=== PATIENT | female | born 1960 | race Caucasian/White ===

== ENCOUNTER 2017-03-28 11:31 | Inpatient (IN) | payer OTHER ==
[2017-03-28] MEDS ORDERED: ALBUTEROL SO4 2.5/IPRATROPIUM 0.5 INH SOL 3 ML VIAL.NEB. NEB ONE ×2 (12:01→12:24)
[2017-03-28] MEDS ORDERED: predniSONE 20 MG TABLET (UD) PO ONE (12:02)
[2017-03-28] MEDS ORDERED: predniSONE 20 MG TABLET (UD) ONE (12:12)
[2017-03-28] MEDS ORDERED: predniSONE 10 MG TABLET (UD) ONE (12:13)
[2017-03-28] MEDS ORDERED: AZITHROMYCIN 500 MG TABLET PO ONE (12:15)
[2017-03-28 12:24] LABS: BASOPHIL 0.2 % (0-2.0); EOSINOPHIL 0.1 % (0-4.5); MCH 30.7 pg (25.7-33.7); MCHC 33.2 g/dl (32.0-36.0); MEAN CELL VOLUME 92.6 fl (80-96); MEAN PLT VOLUME 7.7 fl (7.5-11.1); NEUTROPHILS 80.9 % (42.8-82.8); PLATELET COUNT 225 K/MM3 (134-434); WHITE BLOOD COUNT 11.9 K/mm3 (4.0-10.0)
[2017-03-28] MEDS ORDERED: AZITHROMYCIN 250 MG TABLET ONE (12:24)
--- NOTE | 2017-03-28 12:24 | PDOC ---
History of Present Illness - General Chief Complaint: Chest Pain Stated Complaint: DIFFICULTY BREATHING Time Seen by Provider: 03/28/17 11:41 History Source: Patient Exam Limitations: No Limitations - History of Present Illness Initial Comments: 03/28/17 12:18 56F with history of anxiety and depression here today complaining of chest pain for the past two days. It is located in the lateral left portion of her chest, below her left breast. The pain is made worse with inspiration and movement. She endorses associated shortness of breath because she can't take a full breath in. The pain started yesterday after lifting a bag from [employer]. She denies nausea, vomiting and diaphoresis. She endorses having a cold two days ago with a cough and runny nose, but denies fevers and chills. She is an active smoker, smoking a half pack per day. She has no history of blood clots and is not taking control or estrogen supplements. Past History - Past Medical History Allergies/Adverse Reactions: Allergies Allergy/AdvReac Type Severity Reaction Status Date / Time bacitracin Allergy Intermediate Swelling Verified 04/02/14 16:51 bacitracin zinc Allergy Intermediate Swelling Verified 04/02/14 16:51 [From Neosporin ([id number])] neomycin sulfate Allergy Intermediate Swelling Verified 04/02/14 16:51 [From Neosporin ([id number])] polymyxin B Allergy Intermediate Swelling Verified 04/02/14 16:51 [From Neosporin ([id number])] sumatriptan [From Imitrex] Allergy Unknown Verified 04/02/14 16:51 sumatriptan succinate Allergy Unknown Verified 04/02/14 16:51 [From Imitrex] bees Allergy Uncoded 04/02/14 16:51 Home Medications: Ambulatory Orders Venlafaxine HCl [Effexor -] 150 mg PO BID 03/28/17 HTN: Yes Psychiatric Problems: Yes (depression, anxiety) Suicide Attempt (Hx): No Thyroid Disease: Yes - Surgical History Lung Surgery: Yes (UTERINE ABLATION & BENIGN TUMOR REMOVED) - Family Disease History Family Disease History: Heart Disease: Father, Respiratory: Father - Psycho/Social/Smoking Cessation Hx Anxiety: Yes Suicidal Ideation: No Smoking Status: Yes Smoking History: Current every day smoker Have you smoked in the past 12 months: Yes Number of Cigarettes Smoked Daily: 15 Information on smoking cessation initiated: No 'Breaking Loose' booklet given: 04/02/14 Hx Alcohol Use: No Drug/Substance Use Hx: Yes Substance Use Type: Prescribed Hx Substance Use Treatment: No Review of Systems - Review of Systems Comments:: 03/28/17 12:36 GENERAL/CONSTITUTIONAL: No fever or chills. No weakness. HEAD, EYES, EARS, NOSE AND THROAT: No change in vision. No sore throat. Positive for runny nose. CARDIOVASCULAR: Positive for chest pain and shortness of breath RESPIRATORY: Positive for cough. Negative for wheezing and hemoptysis. GASTROINTESTINAL: No nausea, vomiting, diarrhea or constipation. GENITOURINARY: No dysuria, frequency, or change in urination. MUSCULOSKELETAL: No joint or muscle swelling or pain. Positive for back pain. SKIN: No rash NEUROLOGIC: No headache, vertigo, loss of consciousness, or change in strength/ sensation. ENDOCRINE: No increased thirst. No abnormal weight change HEMATOLOGIC/LYMPHATIC: No anemia, easy bleeding, or history of blood clots. ALLERGIC/IMMUNOLOGIC: No hives or skin allergy. *Physical Exam - Vital Signs Last Vital Signs Temp Pulse Resp BP Pulse Ox 98.4 F 93 H 20 109/88 96 03/28/17 11:41 03/28/17 11:41 03/28/17 11:41 03/28/17 11:41 03/28/17 11:41 Heart Score/ECG Review - History History: Slightly suspicious - Electrocardiogram EKG: Non specific repolarization disturbance - Age Age: 45-65 - Risk Factors Risk Factors Heart Score: Yes Hx Hypertension, Yes Smoking History Based on the list above the patient has:: 1-2 risk factors - Troponin Troponin: </= normal limit - Score Heart Score - Total: 3 - ECG Intrepretation Comment:: 03/28/17 12:38 ECG shows normal sinus rhythm. Rate = 94. T wave inversions in II, III, aVF, V3- V6. No st elevations or depression. QTc 402 ED Treatment Course - LABORATORY CBC & Chemistry Diagram: 03/28/17 12:05 03/28/17 12:05 - RADIOLOGY Radiology Studies Ordered: Category Date Time Status CHEST X-RAY PORTABLE* [RAD] Stat Radiology 03/28/17 12:00 Ordered - Medications Given in the ED: ED Medications Discontinued Medications Generic Name Dose Route Start Last Admin Trade Name Freq PRN Reason Stop Dose Admin Prednisone 50 mg 03/28/17 12:02 03/28/17 12:17 Deltasone - PO 03/28/17 12:03 50 mg ONCE ONE Administration Medical Decision Making - Medical Decision Making 03/28/17 12:39 Patient is a 56F with history of anxiety, depression and htn here today complaining of atypical chest pain. HR to high 90s. Satting 93% on room air. Vital signs otherwise normal and stable. Can't PERC out due to age. Differential diagnosis includes, but is not limited to: COPD exacerbation, ACS, PE, arrhythmia. Will do labs, ecg and cxr to evaluate. 03/28/17 12:42 Laboratory Tests 03/28/17 03/28/17 12:03 12:05 WBC 11.9 H D Hgb 13.1 Hct 39.5 Plt Count 225 D-Dimer 634 H CBC shows small white count, otherwise normal. D-dimer positive. Will do CTA. 03/28/17 13:18 CXR shows no acute cardiopulmonary process. Laboratory Tests 03/28/17 12:05 Troponin I < 0.02 Trop negative. Pending CTA. 03/28/17 15:27 CTA positive for lower lobe PE. Given lovenox. 03/28/17 17:34 Admitted to tele inpatient. *DC/Admit/Observation/Transfer Diagnosis at time of Disposition: Pulmonary embolism - Discharge Dispostion Condition at time of disposition: Stable Admit: Yes - Referrals Referrals: Dany Alvarado MD [Primary Care Provider] -
[2017-03-28 12:26] LABS: INR 1.28 (0.82-1.09); PROTHROMBIN TIME (PATIENT) 14.2 SEC (9.98-11.88)
[2017-03-28 12:49] LABS: ALBUMIN 3.3 g/dl (3.4-5.0); ANION GAP 11 (8-16); BILIRUBIN,TOTAL 0.6 mg/dL (0.2-1.0); CALCIUM 8.6 mg/dL (8.5-10.1); CO2 24 mmol/L (21-32); CREATININE 0.6 mg/dL (0.55-1.02); GLUCOSE,RANDOM 107 mg/dL (74-106); MAGNESIUM 2.1 mg/dL (1.8-2.4); SGOT/AST 9 U/L (15-37); SGPT/ALT 10 U/L (12-78); TOT PROT 6.5 g/dl (6.4-8.2)
[2017-03-28 12:52] LABS: ALK PHOS 91 U/L (45-117); CPK 50 IU/L (26-192); TROPONIN I < 0.02 ng/ml (0.00-0.05)
--- NOTE | 2017-03-28 13:33 | PDOC ---
Attending Attestation - Resident Resident Name: JorgeaugustinaFrancisco Javier - ED Attending Attestation I have performed the following: I have examined & evaluated the patient, The case was reviewed & discussed with the resident, I agree w/resident's findings & plan, Exceptions are as noted - HPI HPI: 03/28/17 13:33 56 F with h/o anxiety presents to ER with chest pain and SOB x 2 days. Pt reports pain that is worse with inspiration associated with cough that is productive of white sputum. Denies F/C. Denies leg swelling. Denies exertional component to pain. No h/o DVT/PE. Pt is longtime smoker, denies h/o COPD. No FH cardiac disease. - Physicial Exam PE: 03/28/17 13:34 "GENERAL: Awake, alert, and fully oriented, in no acute distress HEAD: No signs of trauma EYES: PERRLA, EOMI, sclera anicteric, conjunctiva clear ENT: Auricles normal inspection, hearing grossly normal, nares patent, oropharynx clear without exudates. Moist mucosa NECK: Nontender, no stepoffs, Normal ROM, supple, no lymphadenopathy, JVD, or masses LUNGS: mild expiratory wheezes, no stridor and no crackles HEART: Regular rate and rhythm, normal S1 and S2, no murmurs, rubs or gallops ABDOMEN: Soft, nontender, normoactive bowel sounds. No guarding, no rebound. No masses EXTREMITIES: Normal range of motion, no edema. No clubbing or cyanosis. No cords, erythema, or tenderness NEUROLOGICAL: Cranial nerves II through XII intact. 5/5 strength and sensation in all extremities, Normal speech, normal gait SKIN: Warm, Dry, normal turgor, no rashes or lesions noted. " - Medical Decision Making 03/28/17 13:37 56 F with SOB and chest pain. Likely COPD exacerbation given wheezing on exam. Will r/o PE with dimer/CT. Pain is not consistent with ACS, and pt has few cardiac risk factors. However, EKG with inferolateral T wave inversions not seen on prior EKG 3 years ago. Will r/o ACS with serial trops. HEART score 3. - Labs, trop, dimer - CXR - CTPE if indicated - Nebs, steroids, azithro Discharge Disposition - Diagnosis Pulmonary embolism - Discharge Dispostion Last Admission D/C Date: 05/14/11 Admit: Yes
[2017-03-28] MEDS ORDERED: ENOXAPARIN NA (PORCINE) 60 MG/0.6 ML DISP.SYRIN SQ ONE (15:38)
[2017-03-28] MEDS: ENOXAPARIN NA (PORCINE) 60 MG/0.6 ML DISP.SYRIN SQ SCH (15:41)
[2017-03-28] MEDS ORDERED: ENOXAPARIN NA (PORCINE) 30 MG/0.3 ML DISP.SYRIN SQ ONE (17:27)
--- NOTE | 2017-03-28 17:56 | HP ---
CHIEF COMPLAINT: "I felt like i have bubbles in my left chest" PCP:Christiano HISTORY OF PRESENT ILLNESS: 56F PMH depression anxiety chronic back pain HTN COPD migraines presents to the ED with a 2 day history of left sided lateral chest pain with associated shortness of breath. It is located in the lateral left portion of her chest, lateral to her left breast. She states the pain is worse with inspiration and movement. She states it is difficult to take a deep breath. She states she initially had a funny feeling like bubbles in her left chest and felt like she had to cough to get them out. The pain started yesterday after lifting a bag after shopping. She denies nausea, vomiting fevers chills and diaphoresis. She has back apin at baseline an is awaiting surgery for a spinal stimulator. Patient endorses long periods of time where she is immobile due to pain was able to car for her mom who recently passed from [employer]. She denies any recent leg swelling redness or pain. She has no history of blood clots and is not taking control or estrogen supplements.She endorses having a cold two days ago with a cough and runny nose, but denies fevers and chills. She is an active smoker, but states she quit 2 days ago. In ED she was intially thought to have COPD exacerbation and was treated as such. D dimer was positive which prompted a CTA of the chest and patient was found to have a LLL acute PE. Given lovenox in ED. ER course was notable for: (1)Azithromycin (2)nebulizers (3)CTA chest Recent Travel:Denies PAST MEDICAL HISTORY:As above PAST SURGICAL HISTORY:Discectomy right knee arthroscopy. another spinal surgery patient does not remember what Social History: Smokin pack year history quit 2 days ago Alcohol:Denies Drugs: denies Family History: Allergies bacitracin Allergy (Intermediate, Verified 04/02/14 16:51) Swelling bacitracin zinc [From Neosporin ([id number])] Allergy (Intermediate, Verified 04/02/14 16:51) Swelling neomycin sulfate [From Neosporin ([id number])] Allergy (Intermediate, Verified 04/02/14 16:51) Swelling polymyxin B [From Neosporin ([id number])] Allergy (Intermediate, Verified 16:51) Swelling sumatriptan [From Imitrex] Allergy (Unknown, Verified 04/02/14 16:51) sumatriptan succinate [From Imitrex] Allergy (Unknown, Verified 04/02/14 16:51) bees Allergy (Uncoded 04/02/14 16:51) HOME MEDICATIONS: Home Medications Medication Instructions Recorded Venlafaxine HCl [Effexor -] 150 mg PO BID 03/28/17 REVIEW OF SYSTEMS CONSTITUTIONAL: Absent: fever, chills, diaphoresis, generalized weakness, malaise, loss of appetite, weight change HEENT: Absent: rhinorrhea, nasal congestion, throat pain, throat swelling, difficulty swallowing, mouth swelling, ear pain, eye pain, visual changes CARDIOVASCULAR: Absent: , syncope, palpitations, irregular heart rate, lightheadedness, peripheral edema Present: chest pain RESPIRATORY: Absent: , dyspnea with exertion, orthopnea, wheezing, stridor, hemoptysis Present:cough, shortness of breath GASTROINTESTINAL: Absent: abdominal pain, abdominal distension, nausea, vomiting, diarrhea, constipation, melena, hematochezia GENITOURINARY: Absent: dysuria, frequency, urgency, hesitancy, hematuria, flank pain, genital pain MUSCULOSKELETAL: Absent: myalgia, arthralgia, joint swelling, neck pain Present: back pain neck pain knee pain right hip pain. Patient states she thinks she has a hole in her right hip SKIN: Absent: rash, itching, pallor HEMATOLOGIC/IMMUNOLOGIC: Absent: easy bleeding, easy bruising, lymphadenopathy, frequent infections ENDOCRINE: Absent: unexplained weight gain, unexplained weight loss, heat intolerance, cold intolerance NEUROLOGIC: Absent: headache, focal weakness or paresthesias, dizziness, unsteady gait, seizure, mental status changes, bladder or bowel incontinence PSYCHIATRIC: Absent: suicidal or homicidal ideation, hallucinations Present: anxiety, depression PHYSICAL EXAMINATION GENERAL: Awake, alert, and fully oriented, in no acute distress. HEAD: Normal with no signs of trauma. EYES: Pupils equal, round and reactive to light, extraocular movements intact No lid lag. EARS, NOSE, THROAT: Moist mucous membranes. NECK: Normal range of motion, supple without JVD LUNGS: Breath sounds equal, clear to auscultation bilaterally. No wheezes, and no crackles. No accessory muscle use. HEART: Regular rate and rhythm, normal S1 and S2 without murmur, rub or gallop. ABDOMEN: Soft, nontender, not distended, normoactive bowel sounds, no guarding No CVA tenderness. UPPER EXTREMITIES: warm, well-perfused. No peripheral edema. LOWER EXTREMITIES: 2+ pulses, warm, well-perfused. No calf tenderness. no erythema no swelling no tenderness along all upper and lower extremities. No peripheral edema. NEUROLOGICAL: Cranial nerves II-XII intact. Normal speech. PSYCHIATRIC: Cooperative. Good eye contact. anxious EKG: NSR @ 993 flipped T waves in lateral leads QtC 402 ASSESSMENT/PLAN: 56F with chest pain and shortness of breath found to have acute PE in LLL. Acute LLL Pulmonary embolism: Full therapeutic dose of lovenox pulmonology consult O2 PRN bronchodilators PRN Spoke to patient already about the need for anticoagulation and the different choices. Will go into further details prior to discharge. Can likely discharge on NOAC COPD: Pulm consult not in exacerbation bronchodilators PRN O2 PRN given azithromycin and prednisone in ED Chronic back pain: on muscle relaxers as outpt will continue PRN for outpatient follow up for spinal stimulator HTN: continue norvasc BP controlled Anxiety/depression: continue effexor patient states she is on xanax 2mg 4 times a day will need to verify medications GERD: Protonix PO FEN: No IVF no electrolyte issues low sodium diet PPx: Full anticoagulation dose of lovenox Protonix PT consult Medications to be verified when pharmacy opens Case discussed with attending Dr. Jett Visit type - Emergency Visit Emergency Visit: Yes ED Registration Date: 03/28/17 Care time: The patient presented to the Emergency Department on the above date and was hospitalized for further evaluation of their emergent condition. - New Patient This patient is new to me today: Yes Date on this admission: 03/28/17 - Critical Care Critical Care patient: No
--- NOTE | 2017-03-28 18:22 | PN ---
Teaching Attending Note Name of Resident: Bakari Paredes ATTENDING PHYSICIAN STATEMENT I saw and evaluated the patient. I reviewed the resident's note and discussed the case with the resident. I agree with the resident's findings and plan as documented. SUBJECTIVE: Patient feels very upset due to having Pulmonary Embolism, was found her crying. OBJECTIVE: Vital Signs Temperature 98.4 F 03/28/17 11:41 Pulse Rate 86 03/28/17 15:11 Respiratory Rate 20 03/28/17 15:11 Blood Pressure 110/68 03/28/17 15:11 O2 Sat by Pulse Oximetry (%) 96 03/28/17 15:11 GENERAL: Awake, alert, and fully oriented, in no acute distress. HEAD: Normal with no signs of trauma. EYES: Pupils equal, round and reactive to light, extraocular movements intact No lid lag. EARS, NOSE, THROAT: Moist mucous membranes. NECK: Normal range of motion, supple without JVD LUNGS: Breath sounds equal, clear to auscultation bilaterally but decreased . No wheezes, and no crackles. No accessory muscle use. HEART: Regular rate and rhythm, normal S1 and S2 without murmur, rub or gallop. ABDOMEN: Soft, nontender, not distended, normoactive bowel sounds, no guarding No CVA tenderness. Upper and lower extremities. No peripheral edema. pulses are positive NEUROLOGICAL: Cranial nerves II-XII intact. Normal speech. PSYCHIATRIC: Cooperative. Good eye contact. anxious CBCD WBC 11.9 K/mm3 (4.0-10.0) H D 03/28/17 12:05 RBC 4.27 M/mm3 (3.60-5.2) 03/28/17 12:05 Hgb 13.1 GM/dL (10.7-15.3) 03/28/17 12:05 Hct 39.5 % (32.4-45.2) 03/28/17 12:05 MCV 92.6 fl (80-96) 03/28/17 12:05 MCHC 33.2 g/dl (32.0-36.0) 03/28/17 12:05 RDW 13.0 % (11.6-15.6) 03/28/17 12:05 Plt Count 225 K/MM3 (134-434) 03/28/17 12:05 MPV 7.7 fl (7.5-11.1) 03/28/17 12:05 CMP Sodium 142 mmol/L (136-145) 03/28/17 12:05 Potassium 3.8 mmol/L (3.5-5.1) 03/28/17 12:05 Chloride 107 mmol/L (98-107) 03/28/17 12:05 Carbon Dioxide 24 mmol/L (21-32) 03/28/17 12:05 Anion Gap 11 (8-16) 03/28/17 12:05 BUN 9 mg/dL (7-18) D 03/28/17 12:05 Creatinine 0.6 mg/dL (0.55-1.02) 03/28/17 12:05 Creat Clearance w eGFR > 60 (>60) 03/28/17 12:05 Random Glucose 107 mg/dL (74-106) H D 03/28/17 12:05 Calcium 8.6 mg/dL (8.5-10.1) 03/28/17 12:05 Total Bilirubin 0.6 mg/dL (0.2-1.0) D 03/28/17 12:05 AST 9 U/L (15-37) L D 03/28/17 12:05 ALT 10 U/L (12-78) L D 03/28/17 12:05 Alkaline Phosphatase 91 U/L (45-117) 03/28/17 12:05 Total Protein 6.5 g/dl (6.4-8.2) 03/28/17 12:05 Albumin 3.3 g/dl (3.4-5.0) L 03/28/17 12:05 CARDIAC ENZYMES Creatine Kinase 50 IU/L (26-192) 03/28/17 12:05 Troponin I < 0.02 ng/ml (0.00-0.05) 03/28/17 12:05 Current Medications Generic Name Dose Route Start Last Admin Trade Name Freq PRN Reason Stop Dose Admin Amlodipine Besylate 5 mg 03/29/17 10:00 Norvasc - PO DAILY AMARILIS Enoxaparin Sodium 60 mg 03/28/17 15:30 03/28/17 15:41 Lovenox - SQ 60 mg ONCE AMARILIS Administration Enoxaparin Sodium 60 mg 03/29/17 10:00 Lovenox - SQ Q12H AMARILIS Pantoprazole Sodium 40 mg 03/29/17 10:00 Protonix - PO DAILY AMARILIS Trazodone HCl 150 mg 03/28/17 22:00 Desyrel - PO HS AMARILIS Venlafaxine HCl 100 mg/ 150 mg 03/28/17 22:00 Venlafaxine HCl 50 mg PO BID AMARILIS CTA: LLL and branches positive for PE ASSESSMENT AND PLAN: 56F with chest pain and shortness of breath found to have acute PE in LLL. # Acute PE on Chest Ct: Lovenox 60mg sq bid , Pulmonary consult # Hx of HTN continue Norvasc # Hx of depression continue Trazodone, Venlafaxine # hx of smoking , patient stated that quit smoking 4 days ago, and will not smoke again. DVT px: Lovenox
[2017-03-28] MEDS ORDERED: PT OWN MED DRAWER 7, Y5N ONE (21:24)
[2017-03-28] MEDS ORDERED: VENLAFAXINE HCL 50 MG TABLET PO SCH (22:00)
[2017-03-28] MEDS ORDERED: TOPIRAMATE 25 MG TABLET (FP) PO SCH (22:00)
[2017-03-28] MEDS ORDERED: VENLAFAXINE HCL 100 MG TABLET PO SCH ×2 (22:00)
[2017-03-28] MEDS ORDERED: ALPRAZolam 0.25 MG TABLET PO SCH (22:00)
[2017-03-28] MEDS ORDERED: traZODone HCL 150 MG TABLET PO SCH (22:00)
[2017-03-28] MEDS ORDERED: VENLAFAXINE HCL PO SCH (22:00)
[2017-03-28] MEDS: ALPRAZolam 0.25 MG TABLET PO SCH (22:30)
[2017-03-28] MEDS: TOPIRAMATE 25 MG TABLET (FP) PO SCH (22:51)
[2017-03-28] MEDS: VENLAFAXINE HCL PO SCH (22:52)
[2017-03-28] MEDS: traZODone HCL 150 MG TABLET PO SCH (22:52)
[2017-03-28 23:20] VITALS: BMI 24.9
[2017-03-28] MEDS ORDERED: FLU VACCINE QUAD 60 MCG/0.5 ML (MDV 17-18) IM ONE (23:20)
[2017-03-28] MEDS ORDERED: FENTANYL PATCH WASTE MC PRN (23:30)
[2017-03-29] MEDS: fentaNYL 12mcg/hr PATCH.TD72 TD SCH ×2 (00:28→09:19)
[2017-03-29] MEDS: VENLAFAXINE HCL PO SCH ×2 (09:10→21:22)
[2017-03-29] MEDS: ENOXAPARIN NA (PORCINE) 60 MG/0.6 ML DISP.SYRIN SQ SCH ×3 (09:11→21:23)
[2017-03-29] MEDS: PANTOPRAZOLE 40 MG TABLET (FP) PO SCH (09:12)
[2017-03-29] MEDS: amLODIPine BESYLATE 5 MG TABLET (FP) PO SCH (09:12)
[2017-03-29] MEDS: TOPIRAMATE 25 MG TABLET (FP) PO SCH ×2 (09:13→21:23)
[2017-03-29] MEDS: ALPRAZolam 0.25 MG TABLET PO SCH ×2 (09:13→21:21)
[2017-03-29] MEDS ORDERED: PANTOPRAZOLE 40 MG TABLET (FP) PO SCH (10:00)
[2017-03-29] MEDS ORDERED: amLODIPine BESYLATE 5 MG TABLET (FP) PO SCH (10:00)
--- NOTE | 2017-03-29 13:09 | PN ---
Progress Note (short form) - Note Progress Note: PULMONARY CONSULTATION DICTATED 03/29/17 IMP ACUTE PULMONARY EMBOLISM LIKELY PROVOKED CHRONIC BACK PAIN DEPRESSION HTN PLAN ANTICOAGULATION DUPLEX LOWER EXT ECHO W/U HYPERCOAGULABLE STATE INCENTIVE SPIROMETER ANALGESICS YEARLY LOW DOSE CHEST CT FOR LUNG CANCER SCREENING Problem List - Problems (1) Pulmonary embolism Code(s): I26.99 - OTHER PULMONARY EMBOLISM WITHOUT ACUTE COR PULMONALE (2) Back pain Code(s): M54.9 - DORSALGIA, UNSPECIFIED (3) Depressed Code(s): F32.9 - MAJOR DEPRESSIVE DISORDER, SINGLE EPISODE, UNSPECIFIED (4) HTN (hypertension) Code(s): I10 - ESSENTIAL (PRIMARY) HYPERTENSION (5) Tobacco abuse Code(s): Z72.0 - TOBACCO USE (6) Tobacco abuse counseling
--- NOTE | 2017-03-29 13:40 | PN ---
Physical Exam: SUBJECTIVE: Patient seen and examined. Says she feels much better today and is breathing better. Her pain level yesterday was 12/10 and today she says its a 5/ 10. She denies fever, nausea/vomiting, edema, urinary symptoms, dizziness and headache. OBJECTIVE: Vital Signs Period Temp Pulse Resp BP Sys/[place]oud Pulse Ox Last 24 Hr 97.9 F-98.6 F 72-97 18-18 96-127/52-74 94-98 GENERAL: The patient is awake, alert, and fully oriented, in no acute distress. HEAD: Normal with no signs of trauma. EYES: PERRL, extraocular movements intact, sclera anicteric, conjunctiva clear. No ptosis. ENT: oropharynx clear without exudates, moist mucous membranes. NECK: supple. LUNGS: Breath sounds equal, clear to auscultation bilaterally, no wheezes, no crackles, no accessory muscle use. HEART: Regular rate and rhythm, S1, S2 without murmur, rub or gallop. ABDOMEN: Soft, nontender, nondistended, normoactive bowel sounds, no guarding, no rebound, no hepatosplenomegaly, no masses. EXTREMITIES: 2+ pulses, warm, well-perfused, no edema. NEUROLOGICAL: Cranial nerves II through XII grossly intact. Normal speech, gait not observed. PSYCH: Normal mood, normal affect. Active Medications Generic Name Dose Route Start Last Admin Trade Name Freq PRN Reason Stop Dose Admin Alprazolam 0.25 mg 03/28/17 22:00 03/29/17 09:13 Xanax - PO 0.25 mg BID AMARILIS Administration Amlodipine Besylate 5 mg 03/29/17 10:00 03/29/17 09:12 Norvasc - PO Not Given DAILY AMARILIS Enoxaparin Sodium 60 mg 03/28/17 15:30 03/28/17 15:41 Lovenox - SQ 60 mg ONCE AMARILIS Administration Enoxaparin Sodium 60 mg 03/29/17 10:00 03/29/17 09:11 Lovenox - SQ 60 mg Q12H AMARILIS Administration Fentanyl 1 patch 03/28/17 23:30 03/29/17 09:19 Duragesic 12mcg Patch - TD 04/04/17 23:29 1 patch Q72H AMARILIS Administration Miscellaneous 1 each 03/28/17 23:30 Duragesic Patch Waste MC PRN PRN PAIN Pantoprazole Sodium 40 mg 03/29/17 10:00 03/29/17 09:12 Protonix - PO 40 mg DAILY AMARILIS Administration Topiramate 50 mg 03/28/17 22:00 03/29/17 09:13 Topamax - PO 50 mg BID AMARILIS Administration Trazodone HCl 150 mg 03/28/17 22:00 03/28/17 22:52 Desyrel - PO 150 mg HS AMARILIS Administration Venlafaxine HCl 100 mg/ 150 mg 03/28/17 22:00 03/29/17 09:10 Venlafaxine HCl 50 mg PO 150 mg BID AMARILIS Administration ASSESSMENT/PLAN: Patient is a 56 y/p with a PMx of anxiety, depression, chronic back pain, hypothyroidism, HTN, and COPD presented to the ED with left sided chest pain with SOB and was found to have a LLL PE. #Acute Pulmonary Embolus: -likely provoked. On her bed the past few days because of back pain. -Continue Lovenox 60 BID - Will need to follow-up heme outpatient for hypercoaguable state work up due to 2 family members with history of PE. -Follow up Pulmonary outpatient -Incentive spirometry -Possible NOAC on discharge #Hypertension -Continue Norvasc 5 -will monitor #Depression -Continue Trazodone -Continue Venlafaxine #Anxiety -Continue Xanax .25 BID #Hypothyroidism -Continue Levothyroxine 150mcg #FEN -Not on any fluids -Electrolytes WNL -Sodium restricted diet #PPX: -Lovonex 60BID -GI prophylaxis Dispo: Plan is for possible discharge tomorrow. Visit type - Emergency Visit Emergency Visit: Yes ED Registration Date: 03/28/17 Care time: The patient presented to the Emergency Department on the above date and was hospitalized for further evaluation of their emergent condition. - New Patient This patient is new to me today: Yes Date on this admission: 03/29/17 - Critical Care Critical Care patient: No
--- NOTE | 2017-03-29 13:58 | EKG ---
Test Reason : Blood Pressure : / mmHG Vent. Rate : 094 BPM Atrial Rate : 094 BPM P-R Int : 134 ms QRS Dur : 076 ms QT Int : 322 ms P-R-T Axes : 043 027 253 degrees QTc Int : 402 ms NORMAL SINUS RHYTHM T WAVE ABNORMALITY, CONSIDER INFERIOR ISCHEMIA T WAVE ABNORMALITY, CONSIDER ANTEROLATERAL ISCHEMIA ABNORMAL ECG WHEN COMPARED WITH ECG OF 08-MAR-2014 10:55, T WAVE INVERSION NOW EVIDENT IN INFERIOR LEADS T WAVE VARIATION Confirmed by SAEID TAI MD ([id number]) on 03/29/2017 1:58:17 PM Referred By: Confirmed By:SAEID TAI MD
--- NOTE | 2017-03-29 15:42 | PN ---
Teaching Attending Note Name of Resident: Alberto Deutsch ATTENDING PHYSICIAN STATEMENT I saw and evaluated the patient. I reviewed the resident's note and discussed the case with the resident. I agree with the resident's findings and plan as documented. SUBJECTIVE: Comfortable today ,feels better less pain today when takes deep breaths. OBJECTIVE: Vital Signs Temperature 98 F 03/29/17 10:00 Pulse Rate 72 03/29/17 10:21 Respiratory Rate 18 03/29/17 10:00 Blood Pressure 96/60 03/29/17 10:00 O2 Sat by Pulse Oximetry (%) 96 03/29/17 10:21 CBCD WBC 11.9 K/mm3 (4.0-10.0) H D 03/28/17 12:05 RBC 4.27 M/mm3 (3.60-5.2) 03/28/17 12:05 Hgb 13.1 GM/dL (10.7-15.3) 03/28/17 12:05 Hct 39.5 % (32.4-45.2) 03/28/17 12:05 MCV 92.6 fl (80-96) 03/28/17 12:05 MCHC 33.2 g/dl (32.0-36.0) 03/28/17 12:05 RDW 13.0 % (11.6-15.6) 03/28/17 12:05 Plt Count 225 K/MM3 (134-434) 03/28/17 12:05 MPV 7.7 fl (7.5-11.1) 03/28/17 12:05 CMP Sodium 142 mmol/L (136-145) 03/28/17 12:05 Potassium 3.8 mmol/L (3.5-5.1) 03/28/17 12:05 Chloride 107 mmol/L (98-107) 03/28/17 12:05 Carbon Dioxide 24 mmol/L (21-32) 03/28/17 12:05 Anion Gap 11 (8-16) 03/28/17 12:05 BUN 9 mg/dL (7-18) D 03/28/17 12:05 Creatinine 0.6 mg/dL (0.55-1.02) 03/28/17 12:05 Creat Clearance w eGFR > 60 (>60) 03/28/17 12:05 Random Glucose 107 mg/dL (74-106) H D 03/28/17 12:05 Calcium 8.6 mg/dL (8.5-10.1) 03/28/17 12:05 Total Bilirubin 0.6 mg/dL (0.2-1.0) D 03/28/17 12:05 AST 9 U/L (15-37) L D 03/28/17 12:05 ALT 10 U/L (12-78) L D 03/28/17 12:05 Alkaline Phosphatase 91 U/L (45-117) 03/28/17 12:05 Total Protein 6.5 g/dl (6.4-8.2) 03/28/17 12:05 Albumin 3.3 g/dl (3.4-5.0) L 03/28/17 12:05 CARDIAC ENZYMES Creatine Kinase 50 IU/L (26-192) 03/28/17 12:05 Troponin I < 0.02 ng/ml (0.00-0.05) 03/28/17 12:05 Current Medications Generic Name Dose Route Start Last Admin Trade Name Freq PRN Reason Stop Dose Admin Alprazolam 0.25 mg 03/28/17 22:00 03/29/17 09:13 Xanax - PO 0.25 mg BID [facility] Administration Amlodipine Besylate 5 mg 03/29/17 10:00 03/29/17 09:12 Norvasc - PO Not Given DAILY [facility] Enoxaparin Sodium 60 mg 03/28/17 15:30 03/29/17 15:05 Lovenox - SQ Not Given ONCE [facility] Enoxaparin Sodium 60 mg 03/29/17 10:00 03/29/17 09:11 Lovenox - SQ 60 mg Q12H [facility] Administration Fentanyl 1 patch 03/28/17 23:30 03/29/17 09:19 Duragesic 12mcg Patch - TD 04/04/17 23:29 1 patch Q72H [facility] Administration Levothyroxine Sodium 150 mcg 03/30/17 07:00 Synthroid - PO DAILY@0700 [facility] Miscellaneous 1 each 03/28/17 23:30 Duragesic Patch Waste [facility] PRN PRN PAIN Pantoprazole Sodium 40 mg 03/29/17 10:00 03/29/17 09:12 Protonix - PO 40 mg DAILY [facility] Administration Topiramate 50 mg 03/28/17 22:00 03/29/17 09:13 Topamax - PO 50 mg BID [facility] Administration Trazodone HCl 150 mg 03/28/17 22:00 03/28/17 22:52 Desyrel - PO 150 mg HS [facility] Administration Venlafaxine HCl 100 mg/ 150 mg 03/28/17 22:00 03/29/17 09:10 Venlafaxine HCl 50 mg PO 150 mg BID [facility] Administration Home Medications Medication Instructions Recorded Alprazolam [Xanax] 2 mg PO QID PRN 03/28/17 Fentanyl 12.5 mcg TD 03/28/17 Tapentadol HCl [Nucynta ER] 50 mg PO BID 03/28/17 Venlafaxine HCl [Effexor -] 150 mg PO BID 03/28/17 CTA: LLL and branches positive for PE ASSESSMENT AND PLAN: 56F with chest pain and shortness of breath found to have acute PE in LLL. # Acute PE provoked due to having chronic back pain , and lying in bed most of the time ,most likely, also states that has a mother and brother with PE . On Chest Ct: Lovenox 60mg sq bid , Pulmonary consult . Ordered incentive spirometer. # Hx of HTN continue Norvasc # Hx of depression continue Trazodone, Venlafaxine # Hx of Hypothroidism continue levothyroxine # hx of smoking , patient stated that quit smoking 4 days ago, and will not smoke again. # Hx of chronic Back pain, uses fentanyl patch at home echo, Duplex are ordered hematology f/u as an outpatient to r/o Protein C and S deficiency. DVT px: Lovenox
[2017-03-29] MEDS ORDERED: TOPIRAMATE 25 MG TABLET (FP) PO ONE (17:40)
--- NOTE | 2017-03-29 20:10 | CONS ---
DATE OF CONSULTATION: 03/29/2017 PULMONARY CONSULTATION REFERRING PHYSICIAN: Paige Jett M.D. HISTORY OF PRESENT ILLNESS: The patient is a 56-year-old white female with past medical history of COPD, hypertension, anxiety, depression. History of chronic lower back pain, admitted to [facility] with complaint of 2-day history of left-sided lateral chest pain associated with shortness of breath. Patient states that for the past relatively sedentary recently because of her chronic back pain, as well she had been depressed by the loss of her mother. Apparently 2 days prior to admission she developed the sudden onset of acute left-sided lateral chest pain with associated shortness of breath. Patient describes it as pleuritic in nature, increasing with inspiration, to the point that she is not able to take a deep breath. Her symptoms continued, at which time she presented to the emergency room. She denied any fevers, chills, did have occasional cough which was nonproductive. Denied any nausea, vomiting, diaphoresis. There is no history of recent travel. There is no history of DVT or PE in the past. But she does have a family history of brother having DVT. States that she came to the emergency room as above. In the ER, she had a CTA which revealed left lower lobe pulmonary embolism. She was admitted to the floor and started on anticoagulation. The day before she was relatively sedentary and has chronic back pain and is awaiting surgery for a spinal stimulator. She denies any previous history of DVT or PE in the past. There is no history of occupational exposure to chemicals or fumes. There is no recent travel. She has a longstanding history of tobacco use, approximately 1-1/2 to 2 packs per day since age 18. She quit about 4 days ago. PAST MEDICAL HISTORY: Again includes hypertension, chronic back pain, depression, anxiety. SOCIAL HISTORY: History of tobacco use, quit 4 days ago. No occupational exposures. One daughter alive and well. FAMILY HISTORY: Significant for 6 siblings, one brother has history of blood clots. CURRENT MEDICATIONS: Include Duragesic, Lovenox, Topamax, Desyrel, , Xanax, Norvasc, Duragesic, Protonix. REVIEW OF SYSTEMS: Positive for chest pain. No shortness of breath, no fever, no chills. Positive for cough, which has improved. No nausea, no vomiting, no diaphoresis, no lower extremity edema, no abdominal pain. PHYSICAL EXAMINATION: General: The patient is a well-developed, well-nourished female, awake, alert, in no acute distress. Vital signs: She is currently afebrile. Blood pressure 96/60, respiratory rate 18, and O2 saturation is 96% on 2 L. HEENT: Head is normocephalic, atraumatic. Neck: Supple. Heart: Regular. S1, S2. Chest: Clear. Abdomen: Soft. Bowel sounds positive. Extremities: No cyanosis, edema. LABORATORY: WBC is 11.9, hemoglobin 13.1, hematocrit 39.5, platelet count of 225,000. INR is 1.28, D-dimer is 634. Chemistry: BUN 9, creatinine 0.6. Chest CT reveals left lower lobe pulmonary embolism and bibasilar consolidation but less likely, left pleural effusion likely secondary to atelectasis. IMPRESSION: 1. Pulmonary embolism, likely provoked in view of relatively sedentary lifestyle. 2. Chronic back pain. 3. Depression. 4. Smoker. PLAN: Continue anticoagulation. No objection to . Obtain echocardiogram, duplex lower extremities. Also work up hypocoagulable state. Incentive spirometry. Analgesics. And also yearly low dose chest CT if lung cancer screening reveals long history of tobacco use. MARTIN FINK M.D. SHIVANI/[id number]
[2017-03-29] MEDS ORDERED: PT OWN MED DRAWER 7, Y5N ONE (21:17)
[2017-03-29] MEDS: traZODone HCL 150 MG TABLET PO SCH (21:23)
[2017-03-30] MEDS ORDERED: FLU VACCINE QUAD 60 MCG/0.5 ML (MDV 17-18) IM ONE (06:30)
[2017-03-30] MEDS ORDERED: LEVOTHYROXINE NA 75 MCG TABLET (FP) PO SCH (07:00)
[2017-03-30] MEDS ORDERED: PT OWN MED DRAWER 7, Y5N ONE (08:57)
[2017-03-30] MEDS: VENLAFAXINE HCL PO SCH (09:17)
[2017-03-30] MEDS: amLODIPine BESYLATE 5 MG TABLET (FP) PO SCH (09:17)
[2017-03-30] MEDS: ENOXAPARIN NA (PORCINE) 60 MG/0.6 ML DISP.SYRIN SQ SCH (09:17)
[2017-03-30] MEDS: PANTOPRAZOLE 40 MG TABLET (FP) PO SCH (09:17)
[2017-03-30] MEDS: TOPIRAMATE 25 MG TABLET (FP) PO SCH (09:18)
[2017-03-30] MEDS: ALPRAZolam 0.25 MG TABLET PO SCH (09:18)
--- NOTE | 2017-03-30 11:46 | PN ---
Progress Note, Physician History of Present Illness: pulmonary alert,-resp distress,less cp. - Current Medication List Current Medications: Active Medications Alprazolam (Xanax -) 0.25 mg PO BID [facility] Last Admin: 03/30/17 09:18 Dose: 0.25 mg Amlodipine Besylate (Norvasc -) 5 mg PO DAILY [facility] Last Admin: 03/30/17 09:17 Dose: 5 mg Enoxaparin Sodium (Lovenox -) 60 mg SQ Q12H [facility] Last Admin: 03/30/17 09:17 Dose: 60 mg Fentanyl (Duragesic 12mcg Patch -) 1 patch TD Q72H [facility] Stop: 04/04/17 23:29 Last Admin: 03/29/17 09:19 Dose: 1 patch Levothyroxine Sodium (Synthroid -) 150 mcg PO DAILY@0700 [facility] Last Admin: 03/30/17 06:33 Dose: 150 mcg Miscellaneous (Duragesic Patch Waste) 1 each [facility] PRN PRN PRN Reason: PAIN Last Admin: 03/29/17 09:20 Dose: 1 each Pantoprazole Sodium (Protonix -) 40 mg PO DAILY [facility] Last Admin: 03/30/17 09:17 Dose: 40 mg Topiramate (Topamax -) 50 mg PO BID [facility] Last Admin: 03/30/17 09:18 Dose: 50 mg Trazodone HCl (Desyrel -) 150 mg PO HS [facility] Last Admin: 03/29/17 21:23 Dose: 150 mg Venlafaxine HCl 100 mg/ (Venlafaxine HCl 50 mg) 150 mg PO BID [facility] Last Admin: 03/30/17 09:17 Dose: 150 mg - Objective Vital Signs: Vital Signs Temperature 98.8 F 03/30/17 09:25 Pulse Rate 79 03/30/17 09:25 Respiratory Rate 18 03/30/17 09:25 Blood Pressure 112/76 03/30/17 09:25 O2 Sat by Pulse Oximetry (%) 95 03/29/17 21:00 Constitutional: Yes: Well Nourished, Anxious Eyes: Yes: WNL HENT: Yes: WNL Neck: Yes: WNL Cardiovascular: Yes: Regular Rate and Rhythm, S1, S2 Respiratory: Yes: CTA Bilaterally Gastrointestinal: Yes: Normal Bowel Sounds, Soft Extremities: Yes: WNL Edema: No Labs: INR, PTT INR 1.28 (0.82-1.09) H 03/28/17 12:03 - ....Imaging Ultrasound: Other (duplex -dvt) Problem List - Problems (1) Pulmonary embolism Code(s): I26.99 - OTHER PULMONARY EMBOLISM WITHOUT ACUTE COR PULMONALE (2) Back pain Code(s): M54.9 - DORSALGIA, UNSPECIFIED (3) Depressed Code(s): F32.9 - MAJOR DEPRESSIVE DISORDER, SINGLE EPISODE, UNSPECIFIED (4) HTN (hypertension) Code(s): I10 - ESSENTIAL (PRIMARY) HYPERTENSION (5) Tobacco abuse Code(s): Z72.0 - TOBACCO USE (6) Tobacco abuse counseling Assessment/Plan IMP ACUTE PULMONARY EMBOLISM LIKELY PROVOKED CHRONIC BACK PAIN DEPRESSION HTN PLAN ANTICOAGULATION W/U HYPERCOAGULABLE STATE INCENTIVE SPIROMETER ANALGESICS YEARLY LOW DOSE CHEST CT FOR LUNG CANCER SCREENING Problem List - Problems (1) Pulmonary embolism Code(s): I26.99 - OTHER PULMONARY EMBOLISM WITHOUT ACUTE COR PULMONALE (2) Back pain Code(s): M54.9 - DORSALGIA, UNSPECIFIED (3) Depressed Code(s): F32.9 - MAJOR DEPRESSIVE DISORDER, SINGLE EPISODE, UNSPECIFIED (4) HTN (hypertension) Code(s): I10 - ESSENTIAL (PRIMARY) HYPERTENSION (5) Tobacco abuse Code(s): Z72.0 - TOBACCO USE (6) Tobacco abuse counseling
[2017-03-30 14:14] VITALS: BP 109/68; PULSE 82; TEMP 98.9
--- NOTE | 2017-03-30 17:27 | DS ---
Physical Exam: SUBJECTIVE: Patient seen and examined. Says she feels much better today. She says the pain improved but still has soreness on her chest. No acute events overnight. OBJECTIVE: Vital Signs Period Temp Pulse Resp BP Sys/Stroud Pulse Ox Last 24 Hr 97.3 F-99 F 72-85 18-18 92-122/53-78 94-95 PHYSICAL EXAM GENERAL: The patient is awake, alert, and fully oriented, in no acute distress. HEAD: Normal with no signs of trauma. EYES: PERRL, extraocular movements intact, sclera anicteric, conjunctiva clear. No ptosis. ENT: oropharynx clear without exudates, moist mucous membranes. NECK: supple. LUNGS: Breath sounds equal, clear to auscultation bilaterally, no wheezes, no crackles, no accessory muscle use. HEART: Regular rate and rhythm, S1, S2 without murmur, rub or gallop. ABDOMEN: Soft, nontender, nondistended, normoactive bowel sounds, no guarding, no rebound, no hepatosplenomegaly, no masses. EXTREMITIES: 2+ pulses, warm, well-perfused, no edema. NEUROLOGICAL: Cranial nerves II through XII grossly intact. Normal speech, gait not observed. PSYCH: Normal mood, normal affect. LABS HOSPITAL COURSE: Date of Admission:03/28/17 Patient is a 56 y/p with a PMx of anxiety, depression, chronic back pain, hypothyroidism, HTN, and COPD presented to the ED with left sided chest pain with SOB and was found to have a LLL PE on Chest CTA- likely provoked. She was treated with Lovenox 60mg BID and also was followed up closely with Pulmonary ( Dr. Musa). Her anxiety, hypertension, anxiety and depression home medications were continued during her hospital course. Patient will need to follow up her primary care physician within 1 week and combiner (Dr. Musa) within 2 weeks. Patient will also need to follow Hematology(Dr. James) in 2 weeks for hypercoaguable state work-up because of family history of PE. Patient was discharged on Lovenox 60mg BID and will follow PCP for further management. Her PCP was contacted is aware of the patients situation and agrees to our plan. Patient was given instructions and educated on the use of Anti-coagulants. Date of Discharge: 03/30/17 Minutes to complete discharge: 40 Discharge Summary Reason For Visit: PULMONARY EMBOLISM Condition: Stable - Instructions Diet, Activity, Other Instructions: you were treated for a left lower lobe pulmonary embolism which is a blood clot in your lung take all medications as prescribed it is important to take the blood thinning medications so your blood clot does not worsen Dr. alvarado is aware of your condition and is expecting to see you in the office a pre-authorization for eliquis was already sent to your insurance company if you have worsening of your symptoms call your doctor or go to the nearest ememrgecy room if you start bleeding or having blood in your stools go to the nearest emergency room you need to be extra careful while on blood thinning medications as we discussed Referrals: Micheal Musa MD [Staff Physician] - 2 Weeks Dany Alvarado MD [Staff Physician] - 1 Week Quinton James MD [Staff Physician] - 2 Weeks Disposition: HOME - Home Medications Comprehensive Discharge Medication List: Ambulatory Orders Alprazolam [Xanax] 2 mg PO QID PRN 03/28/17 Fentanyl 12.5 mcg TD 03/28/17 Tapentadol HCl [Nucynta ER] 50 mg PO BID 03/28/17 Venlafaxine HCl [Effexor -] 150 mg PO BID 03/28/17 Enoxaparin [Lovenox -] 60 mg SQ Q12H #60 syr 03/30/17 Levothyroxine [Synthroid -] 150 mcg PO DAILY 03/30/17 This patient is new to me today: No Emergency Visit: Yes ED Registration Date: 03/28/17 Care time: The patient presented to the Emergency Department on the above date and was hospitalized for further evaluation of their emergent condition. Critical Care patient: No - Discharge Referral Referred to [facility] Med P.C.: No
--- NOTE | 2017-03-30 18:02 | PN ---
Teaching Attending Note Name of Resident: Alberto Deutsch ATTENDING PHYSICIAN STATEMENT I saw and evaluated the patient. I reviewed the resident's note and discussed the case with the resident. I agree with the resident's findings and plan as documented. SUBJECTIVE: Patient is feeling better today. Denies any shortness of breath, no nausea , no chest pain. OBJECTIVE: Vital Signs Temperature 98.9 F 03/30/17 14:00 Pulse Rate 82 03/30/17 14:00 Respiratory Rate 18 03/30/17 14:00 Blood Pressure 109/68 03/30/17 14:00 O2 Sat by Pulse Oximetry (%) 94 L 03/30/17 09:00 CBCD WBC 11.9 K/mm3 (4.0-10.0) H D 03/28/17 12:05 RBC 4.27 M/mm3 (3.60-5.2) 03/28/17 12:05 Hgb 13.1 GM/dL (10.7-15.3) 03/28/17 12:05 Hct 39.5 % (32.4-45.2) 03/28/17 12:05 MCV 92.6 fl (80-96) 03/28/17 12:05 MCHC 33.2 g/dl (32.0-36.0) 03/28/17 12:05 RDW 13.0 % (11.6-15.6) 03/28/17 12:05 Plt Count 225 K/MM3 (134-434) 03/28/17 12:05 MPV 7.7 fl (7.5-11.1) 03/28/17 12:05 CMP Sodium 142 mmol/L (136-145) 03/28/17 12:05 Potassium 3.8 mmol/L (3.5-5.1) 03/28/17 12:05 Chloride 107 mmol/L (98-107) 03/28/17 12:05 Carbon Dioxide 24 mmol/L (21-32) 03/28/17 12:05 Anion Gap 11 (8-16) 03/28/17 12:05 BUN 9 mg/dL (7-18) D 03/28/17 12:05 Creatinine 0.6 mg/dL (0.55-1.02) 03/28/17 12:05 Creat Clearance w eGFR > 60 (>60) 03/28/17 12:05 Random Glucose 107 mg/dL (74-106) H D 03/28/17 12:05 Calcium 8.6 mg/dL (8.5-10.1) 03/28/17 12:05 Total Bilirubin 0.6 mg/dL (0.2-1.0) D 03/28/17 12:05 AST 9 U/L (15-37) L D 03/28/17 12:05 ALT 10 U/L (12-78) L D 03/28/17 12:05 Alkaline Phosphatase 91 U/L (45-117) 03/28/17 12:05 Total Protein 6.5 g/dl (6.4-8.2) 03/28/17 12:05 Albumin 3.3 g/dl (3.4-5.0) L 03/28/17 12:05 CARDIAC ENZYMES Creatine Kinase 50 IU/L (26-192) 03/28/17 12:05 Troponin I < 0.02 ng/ml (0.00-0.05) 03/28/17 12:05 Home Medications Medication Instructions Recorded Alprazolam [Xanax] 2 mg PO QID PRN 03/28/17 Fentanyl 12.5 mcg TD 03/28/17 Tapentadol HCl [Nucynta ER] 50 mg PO BID 03/28/17 Venlafaxine HCl [Effexor -] 150 mg PO BID 03/28/17 Enoxaparin [Lovenox -] 60 mg SQ Q12H #60 syr 03/30/17 Levothyroxine [Synthroid -] 150 mcg PO DAILY 03/30/17 Chest: CTA BL rest of PE per resident's note CTA: LLL and branches positive for PE ASSESSMENT AND PLAN: Patient is a 56F with chest pain and shortness of breath found to have acute PE in LLL. # Acute PE provoked due to having chronic back pain , and lying in bed most of the time ,most likely, also states that has a mother and brother with PE . Patient is placed on Lovenox 60mg sq bid ,will continue with Lovenox for now, until sees her PMD and will be arranged for further care of PE. Patient will follow with Pulmonary . continue incentive spirometer. # Hx of HTN continue Norvasc # Hx of depression continue Trazodone, Venlafaxine # Hx of Hypothroidism continue levothyroxine # hx of smoking , patient stated that quit smoking 4 days ago, and will not smoke again. # Hx of chronic Back pain, uses fentanyl patch at home echo, Duplex reviewed hematology f/u as an outpatient to r/o Protein C and S deficiency. discharge time 45minutes.
== END 2017-03-30 15:36 | disposition home health service (06) | DRG 176 ==
LOC: JER 11:31 → JERBED 15:52 → J4S 19:04
PROVIDERS: ADMIT Internal Medicine; ATTEND Internal Medicine
DX: I26.99 Other pulmonary embolism without acute cor pulmonale (principal); F41.8 Other specified anxiety disorders; R07.89 Other chest pain; I10 Essential (primary) hypertension; J44.9 Chronic obstructive pulmonary disease, unspecified; G43.809 Other migraine, not intractable, without status migrainosus; Z87.891 Personal history of nicotine dependence; K21.9 Gastro-esophageal reflux disease without esophagitis; M54.9 Dorsalgia, unspecified; E03.9 Hypothyroidism, unspecified; Z79.01 Long term (current) use of anticoagulants
CPT/HCPCS: 36415; 71010-TC; 71275-TC; 80053; 83735; 84484; 85025; 85379; 85610; 90688; 93005; 93010; 93306-TC; 93970-TC; 94010; 97116-GP; 97161-GP; 99285-25; G0008

== ENCOUNTER 2018-05-13 08:06 | Day surgery (SDC) | payer OTHER ==
[2018-05-13 08:43] VITALS: BMI 24.8
[2018-05-13] MEDS ORDERED: TETRACAINE/BENZOCAINE/BUTAMBEN 20 GM SPR TP ONE (09:31)
[2018-05-13 10:32] VITALS: TEMP 97.9
[2018-05-13 11:35] VITALS: BP 128/75; PULSE 73
--- NOTE | 2018-05-16 15:44 | PATH ---
Surgical Pathology Report Patient Name: MAGGIE WERNER [facility]. Rec. #: [id number] /Age/Gender: 1960 (Age: 57) / F Account: [id number] Location: U-ENDOSCOPY Taken: 05/13/2018 Received: 05/13/2018 Reported: 05/16/2018 Physicians: Arturo Vanegas M.D. Specimen(s) Received A: BX 2ND PORTION DUODENUM AND DUODENAL BULB B: BX ANTRUM C: BX GE JUNCTION D: BX MID ESOPHAGUS E: BX ILEUM F: BX CECUM G: BX DISTAL TRANSVERSE COLON POLYP Clinical History Family history of stomach cancer, possible spinal lesion, rule out stomach and colon cancer Final Diagnosis A. DUODENUM, SECOND PORTION AND DUODENAL BULB, BIOPSY: DUODENAL MUCOSA WITH MILD ACUTE AND CHRONIC DUODENITIS. B. STOMACH, ANTRUM, BIOPSY: GASTRIC ANTRAL MUCOSA WITH MILD CHRONIC GASTRITIS. IMMUNOHISTOCHEMICAL STAIN FOR H. PYLORI IS NEGATIVE. C. EG JUNCTION, BIOPSY: SQUAMOCOLUMNAR MUCOSA WITH MILD ACUTE AND CHRONIC INFLAMMATION AND CHANGES OF MODERATE REFLUX ESOPHAGITIS. NO INTESTINAL METAPLASIA OR DYSPLASIA IDENTIFIED. D. MID ESOPHAGUS, BIOPSY: ESOPHAGEAL SQUAMOUS MUCOSA WITH MILD BASAL CELL HYPERPLASIA AND VASCULAR CONGESTION CONSISTENT WITH MILD REFLUX TYPE ESOPHAGITIS. E. ILEUM, BIOPSY: ILEAL MUCOSA WITHOUT SIGNIFICANT PATHOLOGIC FINDINGS. F. CECUM, BIOPSY: COLONIC MUCOSA WITH FOCAL ACTIVE COLITIS. SEE COMMENT. G. DISTAL TRANSVERSE COLON, POLYP, BIOPSY: POLYPOID COLONIC MUCOSA WITH SMALL LYMPHOID AGGREGATE AND FOCAL SUPERFICIAL HYPERPLASTIC FEATURES. Comment: Findings are non-specific. Although acute self-limited colitis is a consideration, among other conditions, the possibility of early inflammatory bowel disease cannot be completely excluded. Suggest clinical/radiologic correlation. Electronically Signed Caro Moser M.D. Gross Description A. Received in formalin, labeled "second portion duodenum and bulb" are 3 anne, irregular portions of soft tissue measuring 0.5 cm. in greatest dimension. The specimens are submitted in toto in one cassette. B. Received in formalin, labeled "antrum" are multiple anne, irregular portions of soft tissue measuring 0.4 cm. in greatest dimension. The specimens are submitted in toto in one cassette. C. Received in formalin, labeled "EG junction" are multiple anne, irregular portions of soft tissue measuring 0.3 cm. in greatest dimension. The specimens are submitted in toto in one cassette. D. Received in formalin, labeled "mid esophagus rule out eosinophilic esophagitis" are 2 anne, irregular portions of soft tissue measuring 0.4 cm. in greatest dimension. The specimens are submitted in toto in one cassette. E. Received in formalin, labeled "ileum rule out microscopic colitis" are 2 anne, irregular portion of soft tissue measuring 0.3 cm. in greatest dimension. The specimens are submitted in toto in one cassette. F. Received in formalin, labeled "cecum rule out microscopic colitis" are multiple anne, irregular portions of soft tissue measuring 0.3 cm. in greatest dimension. The specimens are submitted in toto in one cassette. G. Received in formalin, labeled "distal transverse colon polyp" are multiple anne, irregular portions of soft tissue measuring 1.0 cm. in greatest dimension. The specimens are submitted in toto in one cassette. FARHAN05/13/2018 shanel05/13/2018
== END 2018-05-13 11:35 | disposition home or self-care (01) ==
LOC: JASU-ENDO 08:06
PROVIDERS: ATTEND Internal Medicine Gastroenterology
PROC: 0DB48ZX Excision of Esophagogastric Junction, Via Natural or Artificial Opening Endoscopic, Diagnostic (ICD-10-PCS; 2018-05-13)
PROC: 0DB68ZX Excision of Stomach, Via Natural or Artificial Opening Endoscopic, Diagnostic (ICD-10-PCS; 2018-05-13)
PROC: 0DB38ZX Excision of Lower Esophagus, Via Natural or Artificial Opening Endoscopic, Diagnostic (ICD-10-PCS; 2018-05-13)
PROC: 0DBL8ZX Excision of Transverse Colon, Via Natural or Artificial Opening Endoscopic, Diagnostic (ICD-10-PCS; principal; 2018-05-13 09:00)
DX: Z12.11 Encounter for screening for malignant neoplasm of colon (principal); D12.3 Benign neoplasm of transverse colon; K29.80 Duodenitis without bleeding; K44.9 Diaphragmatic hernia without obstruction or gangrene; K29.50 Unspecified chronic gastritis without bleeding; K21.0 Gastro-esophageal reflux disease with esophagitis; K52.9 Noninfective gastroenteritis and colitis, unspecified; K57.30 Diverticulosis of large intestine without perforation or abscess without bleeding; Z80.0 Family history of malignant neoplasm of digestive organs
CPT/HCPCS: 87045; 87046; 87177; 87209; 88305-TC; 88342-TC

== ENCOUNTER 2020-05-29 13:31 | Emergency (ER) | payer OTHER | END 2020-05-29 15:29 | disposition home or self-care (01) | LOC: JVIRT 13:31 | DX: Z03.818 Encounter for observation for suspected exposure to other biological agents ruled out (principal) | CPT/HCPCS: C9803; Q3014-GT; U0003 ==

== ENCOUNTER 2021-08-28 09:58 | Inpatient (IN) | payer BC ==
[2021-08-28] MEDS ORDERED: ONDANSETRON *ODT* 4 MG TABLET SL PRN (13:13)
[2021-08-28] MEDS ORDERED: MAGNESIUM CITRATE 300 ML BOTTLE PO PRN (13:13)
[2021-08-28] MEDS ORDERED: MAGNESIUM HYDROX 2400MG/30ML ORAL SUSPENSION 30 ML CUP PO PRN (13:13)
[2021-08-28] MEDS ORDERED: NICOTINE 10 MG CARTRIDGE (INHALER) IH PRN (13:13)
[2021-08-28] MEDS ORDERED: LOPERAMIDE HCL 2 MG CAPSULE PO PRN (13:13)
[2021-08-28] MEDS ORDERED: ACETAMINOPHEN 325 MG TABLET (FP) PO PRN ×2 (13:13)
[2021-08-28] MEDS ORDERED: BISMUTH SUBSALICYLATE 524 MG/30 ML PO PRN (13:13)
[2021-08-28] MEDS ORDERED: MENTHOL/PHENOL 1 EACH UD MM PRN (13:13)
[2021-08-28] MEDS ORDERED: BUPRENORPHINE HCL 150 MCG, BUPRENORPHINE HCL 75 MCG BC ONE (13:45)
[2021-08-28] MEDS ORDERED: cloNIDine HCL 0.1 MG TABLET PO ONE (13:45)
[2021-08-28 14:20] VITALS: BMI 33.6
[2021-08-28] MEDS ORDERED: ALPRAZolam 2 MG TABLET PO PRN (15:01)
[2021-08-28] MEDS ORDERED: BUPRENORPHINE HCL 150 MCG FILM BC ONE (15:51)
[2021-08-28] MEDS ORDERED: BUPRENORPHINE HCL 75 MCG FILM BC ONE (15:52)
[2021-08-28] MEDS: hydrOXYzine PAMOATE 25 MG CAPSULE (FP) PO SCH ×2 (15:53→17:30)
[2021-08-28] MEDS: METHOCARBAMOL 500 MG TABLET PO PRN (15:54)
[2021-08-28] MEDS: IBUPROFEN 400 MG TABLET (FP) PO PRN (17:31)
[2021-08-28] MEDS: diazePAM 5 MG TABLET PO PRN (18:08)
[2021-08-29] MEDS: VENLAFAXINE HCL 75 MG TABLET PO SCH ×3 (00:27→21:25)
[2021-08-29] MEDS: hydrOXYzine PAMOATE 25 MG CAPSULE (FP) PO SCH ×6 (00:28→21:25)
[2021-08-29] MEDS: MELATONIN 5 MG TABLETS PO SCH ×2 (00:28→21:42)
[2021-08-29] MEDS: THIAMINE HCL 100 MG TABLET (FP) PO SCH ×2 (00:28→21:42)
[2021-08-29] MEDS: diazePAM 5 MG TABLET PO PRN ×3 (02:43→23:03)
[2021-08-29] MEDS ORDERED: BUPRENORPHINE HCL 75 MCG FILM BC ONE ×2 (04:19→17:42)
[2021-08-29] MEDS ORDERED: BUPRENORPHINE HCL 150 MCG FILM BC ONE ×2 (04:19→17:41)
[2021-08-29] MEDS ORDERED: LEVOTHYROXINE NA 100 MCG TABLET (FP) ONE (06:28)
[2021-08-29] MEDS ORDERED: LEVOTHYROXINE NA 25 MCG TABLET (FP) ONE (06:28)
[2021-08-29] MEDS: LEVOTHYROXINE 100 MCG, LEVOTHYROXINE 50 MCG PO SCH (06:28)
[2021-08-29] MEDS: BUPRENORPHINE HCL 150 MCG, BUPRENORPHINE HCL 75 MCG BC SCH ×2 (06:28→18:27)
[2021-08-29] MEDS ORDERED: LEVOTHYROXINE NA 150 MCG TABLET PO SCH (10:00)
[2021-08-29] MEDS ORDERED: amLODIPine BESYLATE 5 MG TABLET (FP) PO SCH ×2 (10:00→14:12)
[2021-08-29 10:33] LABS: HEMATOCRIT 38.7 % (32.4-45.2); HEMOGLOBIN 12.8 GM/dL (10.7-15.3); MCHC 33.2 g/dl (32.0-36.0); MEAN CELL VOLUME 99.3 fl (80-96); PLATELET COUNT 346 10^3/uL (134-434); RBC 3.89 M/mm3 (3.60-5.2); RDW 13.6 % (11.6-15.6); WHITE BLOOD COUNT 6.6 K/mm3 (4.0-10.0)
[2021-08-29] MEDS: PRENATAL VITAMINS W/ FOLIC ACID TABLET (FP) PO SCH (10:34)
[2021-08-29] MEDS: METHOCARBAMOL 500 MG TABLET PO PRN (10:35)
[2021-08-29 10:44] LABS: CALCIUM 8.4 mg/dL (8.5-10.1)
[2021-08-29 10:45] LABS: BLOOD UREA NITROGEN 8.5 mg/dL (7-18); CREATININE 0.8 mg/dL (0.55-1.3)
[2021-08-29 10:46] LABS: BILIRUBIN,TOTAL 0.3 mg/dL (0.2-1)
[2021-08-29 10:47] LABS: TOT PROT 7.7 g/dl (6.4-8.2)
[2021-08-29] MEDS ORDERED: FLU VACC QS2021-22(6MOS UP)/PF 60 MCG/0.5 ML SYRINGE IM ONE (12:00)
[2021-08-29] MEDS ORDERED: TOPIRAMATE 25 MG TABLET PO ONE (14:40)
[2021-08-29] MEDS ORDERED: clonazePAM 0.5 MG ODT TABLETS SL PRN (15:25)
[2021-08-29] MEDS: TOPIRAMATE 25 MG TABLET PO SCH (21:25)
[2021-08-30] MEDS ORDERED: LEVOTHYROXINE NA 100 MCG TABLET (FP) ONE (04:26)
[2021-08-30] MEDS ORDERED: LEVOTHYROXINE NA 25 MCG TABLET (FP) ONE (04:26)
[2021-08-30] MEDS: hydrOXYzine PAMOATE 25 MG CAPSULE (FP) PO SCH ×5 (05:50→22:14)
[2021-08-30] MEDS: BUPRENORPHINE HCL 450 MCG FILM BC SCH ×2 (05:50→17:49)
[2021-08-30] MEDS: LEVOTHYROXINE 100 MCG, LEVOTHYROXINE 50 MCG PO SCH (06:02)
[2021-08-30] MEDS: PRENATAL VITAMINS W/ FOLIC ACID TABLET (FP) PO SCH (10:34)
[2021-08-30] MEDS: METHOCARBAMOL 500 MG TABLET PO PRN ×3 (10:35→22:18)
[2021-08-30] MEDS: diazePAM 5 MG TABLET PO PRN (10:35)
[2021-08-30] MEDS: amLODIPine BESYLATE 2.5 MG TABLET (FP) PO SCH (10:36)
[2021-08-30] MEDS: TOPIRAMATE 25 MG TABLET PO SCH ×2 (10:36→22:14)
[2021-08-30] MEDS: VENLAFAXINE HCL 75 MG TABLET PO SCH ×2 (10:37→22:14)
[2021-08-30 12:07] LABS: SARS-CoV-2 NAA Not Detected (Not Detected)
[2021-08-30] MEDS: cloNIDine HCL 0.1 MG TABLET PO PRN (22:14)
[2021-08-30] MEDS: MELATONIN 5 MG TABLETS PO SCH (22:14)
[2021-08-30] MEDS: THIAMINE HCL 100 MG TABLET (FP) PO SCH (22:14)
[2021-08-31] MEDS: IBUPROFEN 400 MG TABLET (FP) PO PRN (04:10)
[2021-08-31] MEDS ORDERED: LEVOTHYROXINE NA 25 MCG TABLET (FP) ONE (04:24)
[2021-08-31] MEDS ORDERED: LEVOTHYROXINE NA 100 MCG TABLET (FP) ONE (04:25)
[2021-08-31] MEDS: BUPRENORPHINE/NALOXONE 4 MG/1 MG FILM PACKET SL SCH ×2 (05:47→17:45)
[2021-08-31] MEDS: hydrOXYzine PAMOATE 25 MG CAPSULE (FP) PO SCH ×6 (05:47→21:01)
[2021-08-31] MEDS: METHOCARBAMOL 500 MG TABLET PO PRN (05:48)
[2021-08-31] MEDS: LEVOTHYROXINE 100 MCG, LEVOTHYROXINE 50 MCG PO SCH (07:05)
[2021-08-31] MEDS: PRENATAL VITAMINS W/ FOLIC ACID TABLET (FP) PO SCH (10:22)
[2021-08-31] MEDS: TOPIRAMATE 25 MG TABLET PO SCH ×2 (10:23→21:01)
[2021-08-31] MEDS: amLODIPine BESYLATE 2.5 MG TABLET (FP) PO SCH (10:23)
[2021-08-31] MEDS: VENLAFAXINE HCL 75 MG TABLET PO SCH ×2 (10:24→21:02)
[2021-08-31] MEDS: cloNIDine HCL 0.1 MG TABLET PO PRN ×2 (17:45→21:01)
[2021-08-31] MEDS: MAG HYDROX/AL HYDROX/SIMETH 30 ML UNIT-DOSE CUP PO PRN (17:47)
[2021-08-31] MEDS: THIAMINE HCL 100 MG TABLET (FP) PO SCH (21:01)
[2021-08-31] MEDS: MELATONIN 5 MG TABLETS PO SCH (21:01)
[2021-08-31] MEDS ORDERED: hydrOXYzine PAMOATE 25 MG CAPSULE (FP) PO ONE (21:33)
[2021-09-01] MEDS ORDERED: LEVOTHYROXINE NA 100 MCG TABLET (FP) ONE (04:20)
[2021-09-01] MEDS ORDERED: LEVOTHYROXINE NA 25 MCG TABLET (FP) ONE (04:20)
[2021-09-01] MEDS ORDERED: BUPRENORPHINE/NALOXONE 8 MG/2 MG FILM PACKET SL ONE (06:00)
[2021-09-01] MEDS: LEVOTHYROXINE 100 MCG, LEVOTHYROXINE 50 MCG PO SCH (06:14)
[2021-09-01] MEDS: hydrOXYzine PAMOATE 25 MG CAPSULE (FP) PO SCH ×3 (06:14→13:42)
[2021-09-01] MEDS: MAG HYDROX/AL HYDROX/SIMETH 30 ML UNIT-DOSE CUP PO PRN (06:19)
[2021-09-01] MEDS: METHOCARBAMOL 500 MG TABLET PO PRN (10:37)
[2021-09-01] MEDS: amLODIPine BESYLATE 2.5 MG TABLET (FP) PO SCH (10:37)
[2021-09-01] MEDS: TOPIRAMATE 25 MG TABLET PO SCH (10:37)
[2021-09-01] MEDS: PRENATAL VITAMINS W/ FOLIC ACID TABLET (FP) PO SCH (10:38)
[2021-09-01] MEDS: VENLAFAXINE HCL 75 MG TABLET PO SCH (10:38)
[2021-09-01] MEDS ORDERED: diazePAM 5 MG TABLET PO ONE (15:40)
[2021-09-01 18:01] VITALS: BP 137/93; PULSE 92; TEMP 97.1
[2021-09-02] MEDS ORDERED: BUPRENORPHINE/NALOXONE 8 MG/2 MG FILM PACKET SL ONE (06:00)
== END 2021-09-01 17:51 | disposition left against medical advice (07) | DRG 894 ==
LOC: YASAS 09:58 → Y6N 15:12
PROVIDERS: ADMIT Allergy & Immunology; ATTEND Allergy & Immunology
PROC: HZ2ZZZZ Detoxification Services for Substance Abuse Treatment (ICD-10-PCS; principal; 2021-08-28)
DX: F11.23 Opioid dependence with withdrawal (principal); F13.20 Sedative, hypnotic or anxiolytic dependence, uncomplicated; F41.8 Other specified anxiety disorders; F32.A Depression, unspecified; E03.9 Hypothyroidism, unspecified; I10 Essential (primary) hypertension; G47.00 Insomnia, unspecified; M54.50 Low back pain, unspecified; G89.29 Other chronic pain; Z85.72 Personal history of non-Hodgkin lymphomas; Z87.891 Personal history of nicotine dependence; Z99.89 Dependence on other enabling machines and devices; Z88.8 Allergy status to other drugs, medicaments and biological substances
CPT/HCPCS: 36415; 80053; 85027; 86780; 87811; 90686; 93005; 93010; C9803-CS; G0008; J0735; U0003; U0005

== ENCOUNTER 2021-08-28 19:22 | Emergency (ER) | payer BC ==
[2021-08-28 19:49] VITALS: BP 141/71; PULSE 76; TEMP 97.9; BMI 29.7
[2021-08-28] MEDS ORDERED: NAPROXEN 500 MG TABLET ONE (21:58)
[2021-08-28 22:11] LABS: BASO % 0.9 % (0-2.0); HEMATOCRIT 38.4 % (32.4-45.2); HEMOGLOBIN 12.7 GM/dL (10.7-15.3); LYMPH % 39.6 % (8-40); MEAN PLT VOLUME 7.3 fl (7.5-11.1); MONO % 7.9 % (3.8-10.2); NEUT % 49.6 % (42.8-82.8); PLATELET COUNT 335 10^3/uL (134-434); RBC 3.84 M/mm3 (3.60-5.2); RDW 13.8 % (11.6-15.6); WHITE BLOOD COUNT 8.1 K/mm3 (4.0-10.0)
[2021-08-28 22:21] LABS: INR 1.09 (0.83-1.09); PROTHROMBIN TIME (PATIENT) 12.6 SEC (9.7-13.0)
[2021-08-28] MEDS ORDERED: NAPROXEN 500 MG TABLET PO ONE (22:23)
[2021-08-28 22:24] LABS: ACTIVATED PTT 31.6 SECONDS (25.2-36.5)
[2021-08-28 22:26] LABS: ALBUMIN 3.9 g/dl (3.4-5.0); BLOOD UREA NITROGEN 7.9 mg/dL (7-18); CALCIUM 8.4 mg/dL (8.5-10.1); MAGNESIUM 2.3 mg/dL (1.8-2.4)
[2021-08-28 22:29] LABS: CREATININE 0.7 mg/dL (0.55-1.3)
[2021-08-28 22:31] LABS: BILIRUBIN,TOTAL 0.4 mg/dL (0.2-1); TOT PROT 7.1 g/dl (6.4-8.2)
[2021-08-29] MEDS ORDERED: cloNIDine HCL 0.1 MG TABLET PO ONE (00:52)
[2021-08-29] MEDS ORDERED: cloNIDine HCL 0.1 MG TABLET ONE (01:09)
== END 2021-08-29 01:47 | disposition short-term general hospital (02) ==
LOC: JER 19:22
DX: R07.9 Chest pain, unspecified (principal)
CPT/HCPCS: 36415; 71046-TC-FY; 80053; 83735; 84484; 85025; 85610; 85730; 93005; 93010; 99285-25; J0735